=== PATIENT | male | born 1995 | race African-American/Black ===

== ENCOUNTER 2016-12-14 22:36 | Emergency (ER) | payer OTHER ==
[2016-12-14 22:50] VITALS: RESP 16; TEMP 98.1
--- NOTE | 2016-12-14 22:50 | EDPHY ---
H & P Time Seen by Provider: 12/14/16 22:43 HPI/ROS: CHIEF COMPLAINT: Neck pain and thoracic back pain HISTORY OF PRESENT ILLNESS: Patient is a 21-year-old man who fell tonight from standing height. He was running and playing capture the flank. He slipped and landed flat on his back. He complains of pain between his shoulder blades just to the left of his spine. Also just to the left of his cervical spine. He denies any weakness numbness or paralysis. No incontinence. No headache. No head injury. REVIEW OF SYSTEMS: Constitutional: denies: chills, fever, recent illness, recent injury EENTM: denies: blurred vision, double vision, nose congestion Respiratory: denies: cough, shortness of breath Cardiac: denies: chest pain, irregular heart rate, lightheadedness, palpitations Gastrointestinal/Abdominal: denies: abdominal pain, diarrhea, nausea, vomiting, blood streaked stools Genitourinary: denies: dysuria, frequency, hematuria, pain Musculoskeletal: See HPI Skin: denies: lesions, rash, jaundice, bruising Neurological: denies: headache, numbness, paresthesia, tingling, dizziness, weakness Hematologic/Lymphatic: denies: blood clots, easy bleeding, easy bruising Immunologic/allergic: denies: HIV/AIDS, transplant EXAM: GENERAL: Well-appearing, well-nourished and in no acute distress. HEAD: Atraumatic, normocephalic. EYES: Pupils equal round and reactive to light, extraocular movements intact, sclera anicteric, conjunctiva are normal. ENT: TMs normal, nares patent, oropharynx clear without exudates. Moist mucous membranes. NECK: Pain with range of motion, pain to the lateral left aspect of the C 5 and 6, cervical collar placed to triage. LUNGS: Breath sounds clear to auscultation bilaterally and equal. No wheezes rales or rhonchi. HEART: Regular rate and rhythm without murmurs, rubs or gallops. ABDOMEN: Soft, nontender, normoactive bowel sounds. No guarding, no rebound. No masses appreciated. BACK: The patient has pain just to the left of T for 5 region . He states that hurts with deep inspiration. No obvious step-offs or deformities. EXTREMITIES: Normal range of motion, no pitting or edema. No clubbing or cyanosis. NEUROLOGICAL: Cranial nerves II through XII grossly intact. Normal speech, normal gait. 5/5 strength, normal movement in all extremities, normal sensation PSYCH: Normal mood, normal affect. SKIN: Warm, dry, normal turgor, no visible rashes or lesions. Source: Patient Exam Limitations: No limitations - Medical/Surgical History Hx Asthma: No Hx Chronic Respiratory Disease: No Hx Diabetes: No Hx Cardiac Disease: No Hx Renal Disease: No Hx Cirrhosis: No Hx Alcoholism: No - Family History Significant Family History: No pertinent family hx - Social History Smoking Status: Never smoked Alcohol Use: Sober Drug Use: None Constitutional: Initial Vital Signs Temperature (C) 36.7 C 12/14/16 22:48 Heart Rate 93 12/14/16 22:48 Respiratory Rate 16 12/14/16 22:48 Blood Pressure 152/97 H 12/14/16 22:48 O2 Sat (%) 96 12/14/16 22:48 O2 Delivery Mode Room Air Allergies/Adverse Reactions: No Known Allergies Allergy (Unverified 12/14/16 22:48) Home Medications: Medication Instructions Recorded Metaxalone [Skelaxin 800 mg (*)] 800 mg PO TID PRN #12 tab 12/14/16 Medical Decision Making - Diagnostics Imaging Results: Imaging Impressions Cervical Spine CT 12/14/16 22:47 Impression: 1. Likely degenerative annular calcification or sequelae of remote trauma adjacent to the anterior superior corner of C6. 2. No definite acute posttraumatic abnormality identified. Results called to Lexi at 11:30 PM Final results are concordant with the initial interpretation. General information for patients regarding this examination can be found at [employer]. If you have questions or comments about this report, please contact me at [phone] ([facility]) or [phone] (cell). Thoracic Spine CT 12/14/16 22:47 Impression: Normal. No source for pain identified. Results discussed with Dr. Elliott at 11:35 PM. General information for patients regarding this examination can be found at [employer]. If you have questions or comments about this report, please contact me at ([facility]) or [phone] (cell). Imaging: Discussed imaging studies w/ physical therapy teacher Radiologist ED Course/Re-evaluation: 11:45 p[address]. we discussed the CT results. The patient is relieved. He is requesting ibuprofen. I will write him prescription for Skelaxin to use later if needed. Discussed indications for returning. He continues to deny any neurologic deficits. Differential Diagnosis: Partial list of the Differential diagnosis considered include but were not limited to; muscle strain, cervical spine fracture, thoracic fracture, rib fracture and although unlikely based on the history and physical exam, I also considered head injury, pneumothorax, spinal cord injury. I discussed these differential diagnoses and the plan with the patient as well as the usual and expected course. The patient understands that the diagnosis is provisional and that in medicine we are not always correct and that further workup is often warranted. Usual and customary warnings were given. All of the patient's questions were answered. The patient was instructed to return to the emergency department should the symptoms at all worsen or return, otherwise to followup with the physician as we discussed. - Data Points Medications Given: Discontinued Medications Ibuprofen (Motrin) 800 mg PO EDNOW ONE Stop: 12/14/16 23:48 Last Admin: 12/15/16 00:00 Dose: 800 mg Departure - Departure Disposition: Home, Routine, Self-Care Clinical Impression: Muscle strain Condition: Fair Instructions: Muscle Strain (ED) Referrals: Eileen Ch DO [Doctor of Osteopathy] - As per Instructions Prescriptions: Metaxalone [Skelaxin 800 mg (*)] 800 mg PO TID PRN #12 tab PRN Reason: Spasms
[2016-12-14] MEDS ORDERED: IBUPROFEN 200 MG TAB PO ONE (23:47)
[2016-12-15 00:01] VITALS: BP 142/99; PULSE 78; O2SAT 97
== END 2016-12-15 00:01 | disposition home or self-care (01) ==
DX: S39.012A Strain of muscle, fascia and tendon of lower back, initial encounter (principal); W01.0XXA Fall on same level from slipping, tripping and stumbling without subsequent striking against object, initial encounter; Y99.8 Other external cause status; Y93.02 Activity, running